=== PATIENT | female | born 1985 | race African-American/Black ===

== ENCOUNTER 2016-05-08 19:09 | Emergency (ER) | payer SELFPAY ==
[2016-05-08 19:38] LABS: Bilirubin Negative (Negative); Blood, Urine Small (Negative); Glucose, Urine (Dipstick) Negative (Negative); Ketone, Urine Negative (Negative); Nitrite Negative (Negative); Protein, Urine (Dipstick) Negative (Neg-Trace); Urobilinogen 0.2 mg/dL (0.2-1.0)
[2016-05-08 19:53] LABS: Squamous Epithelial 0-3 HPF (0-3); WBC/HPF 0-3 HPF (0-3)
== END 2016-05-08 20:07 | disposition home or self-care (01) ==
LOC: NAV ERS 19:09
DX: L02.211 Cutaneous abscess of abdominal wall (principal); R30.0 Dysuria; J45.909 Unspecified asthma, uncomplicated; F17.210 Nicotine dependence, cigarettes, uncomplicated
CPT/HCPCS: 81003; 81015; 99283

== ENCOUNTER 2016-05-30 04:38 | Emergency (ER) | payer SELFPAY ==
[2016-05-30] MEDS ORDERED: Ibuprofen 800 MG TAB ONE (05:05)
== END 2016-05-30 05:12 | disposition home or self-care (01) ==
LOC: NAV ERS 04:38
DX: R04.0 Epistaxis (principal); J02.9 Acute pharyngitis, unspecified; F17.210 Nicotine dependence, cigarettes, uncomplicated; Z86.711 Personal history of pulmonary embolism
CPT/HCPCS: 87081; 87430; 99283

== ENCOUNTER 2016-06-26 22:35 | Emergency (ER) | payer SELFPAY ==
[2016-06-26] MEDS ORDERED: Sulfameth/Trimethoprim DS 800-160mg TAB ONE (23:22)
[2016-06-26] MEDS ORDERED: Clindamycin 150 MG CAP ONE (23:22)
== END 2016-06-26 23:33 | disposition home or self-care (01) ==
LOC: NAV ERS 22:35
DX: L73.9 Follicular disorder, unspecified (principal); L02.224 Furuncle of groin; F41.9 Anxiety disorder, unspecified; F17.210 Nicotine dependence, cigarettes, uncomplicated; Z86.711 Personal history of pulmonary embolism
CPT/HCPCS: 87070; 87077; 87186; 87205; 99283

== ENCOUNTER 2017-04-03 09:34 | Emergency (ER) | payer BC, SELFPAY ==
[2017-04-03] MEDS ORDERED: Fluorescein Opthalmic Strip ONE (09:47)
[2017-04-03] MEDS ORDERED: Sodium Chloride 0.9% 1,000 ML ONE ×2 (09:50→10:19)
== END 2017-04-03 11:20 | disposition home or self-care (01) ==
LOC: NAV ERS 09:34
DX: H18.822 Corneal disorder due to contact lens, left eye (principal); F41.9 Anxiety disorder, unspecified; F17.210 Nicotine dependence, cigarettes, uncomplicated
CPT/HCPCS: 99283; J7050

== ENCOUNTER 2020-11-27 10:13 | Emergency (ER) | payer BC ==
[2020-11-27] MEDS ORDERED: diphenhydrAMINE 50 MG/ML VIAL ONE (10:23)
[2020-11-27] MEDS ORDERED: methylPREDNISolone Sod Succ/PF 125 MG/2 ML VIAL ONE (10:23)
[2020-11-27] MEDS ORDERED: Sodium Chloride 0.9% 1,000 ML ONE (10:26)
[2020-11-27 10:49] LABS: ALT (SGPT) 22 U/L (8-55); AST (SGOT) 25 U/L (5-34); Albumin 4.1 g/dL (3.5-5.0); Alkaline Phosphatase 74 U/L (40-110); Anion Gap 16 mmol/L (10-20); BUN (Urea Nitrogen) 11 mg/dL (7.0-18.7); Bilirubin, Total 0.4 mg/dL (0.2-1.2); Calc. Creatinine Clearance 0 mL/min (70-130); Calcium 9.4 mg/dL (7.8-10.44); Carbon Dioxide 20 mmol/L (22-29); Chloride 104 mmol/L (98-107); Globulin 3.9 g/dL (2.4-3.5); Glucose 129 mg/dL (70-105); Potassium 3.9 mmol/L (3.5-5.1); Sodium 136 mmol/L (136-145)
[2020-11-27 11:02] LABS: Eosinophils 1 % (0-10); Hemoglobin 13.3 g/dL (12.0-16.0); Lymphocytes 73 % (21-51); MDiff Complete? YES; Mean Corpuscular HGB CONC 30.1 g/dL (32.0-36.0); Mean Corpuscular Hemoglobin 23.9 pg (27.0-31.0); Mean Corpuscular Volume 79.6 fL (78.0-98.0); Mean Platelet Volume 9.3 fL (7.4-10.4); Monocytes 3 % (0-10); Neutrophil 23 % (42-75); Platelet Count 340 thou/uL (130-400); Platelet Morphology Comment Appears Adequate; RBC Distribution Width 14.7 % (11.5-14.5); Red Blood Cell (RBC) Count 5.56 mill/uL (4.20-5.40); White Blood Cell (WBC) Count 7.2 thou/uL (4.8-10.8)
[2020-11-27] MEDS ORDERED: Metoclopramide HCl 10 MG/2 ML VIAL ONE (11:22)
== END 2020-11-27 12:50 | disposition home or self-care (01) ==
LOC: NAV ERS 10:13
DX: L50.0 Allergic urticaria (principal); G43.909 Migraine, unspecified, not intractable, without status migrainosus; I10 Essential (primary) hypertension; F17.210 Nicotine dependence, cigarettes, uncomplicated; Z79.899 Other long term (current) drug therapy
CPT/HCPCS: 80053; 85025; 96365; 96375; J1200; J2765; J2930; J7050

== ENCOUNTER 2022-07-17 12:02 | Emergency (ER) | payer BC ==
[2022-07-17 12:34] LABS: MDiff Complete? YES; Manual Diff?? YES; Mean Corpuscular HGB CONC 29.9 g/dL (32.0-36.0); Mean Corpuscular Hemoglobin 23.2 pg (27.0-31.0); Mean Corpuscular Volume 77.8 fl (78.0-98.0); Mean Platelet Volume 8.7 fL (7.4-10.4); Platelet Count 195 10x3/uL (130-400); Red Blood Cell (RBC) Count 5.16 mill/uL (4.20-5.40); White Blood Cell (WBC) Count 9.9 10x3/uL (4.8-10.8)
[2022-07-17] MEDS ORDERED: Lidocaine Viscous Sol 2% 15 ml UD Cup ONE (12:38)
[2022-07-17] MEDS ORDERED: Sodium Chloride 0.9% 1,000 ML ONE (12:38)
[2022-07-17] MEDS ORDERED: Mag-Al Plus 1200 MG/1200 MG/120 MG/30 ML UDCUP ONE (12:38)
[2022-07-17] MEDS ORDERED: Ondansetron PF 4 MG/2 ML Vial ONE (12:38)
[2022-07-17] MEDS ORDERED: Pantoprazole 40 MG VIAL ONE (12:39)
[2022-07-17 12:40] LABS: ALT (SGPT) 22 U/L (8-55); AST (SGOT) 28 U/L (5-34); Albumin 4.2 g/dL (3.5-5.0); Alkaline Phosphatase 63 U/L (40-110); Anion Gap 16 mmol/L (10-20); BUN (Urea Nitrogen) 8 mg/dL (7.0-18.7); Bilirubin, Total 0.4 mg/dL (0.2-1.2); Calc. Creatinine Clearance 0 mL/min (70-130); Carbon Dioxide 20 mmol/L (22-29); Chloride 104 mmol/L (98-107); Estimated GFR 101; Globulin 4.2 g/dL (2.4-3.5); Glucose 103 mg/dL (70-105); Potassium 4.2 mmol/L (3.5-5.1); Protein, Total 8.4 g/dL (6.0-8.3); Sodium 136 mmol/L (136-145)
[2022-07-17 12:48] LABS: CKMB 1.3 ng/mL (0-6.6)
[2022-07-17 12:58] LABS: Band 1 % (5-11); Eosinophils 6 % (0-10); Lymphocytes 21 % (21-51); Monocytes 9 % (0-10); Neutrophil 61 % (42-75); Reactive Lymphocytes 2 % (0-10)
[2022-07-17 12:59] LABS: Large Platelets SLIGHT (None Seen); Microcytosis SLIGHT = 6-15 cells (100X) (0-5/hpf); Target Cells SLIGHT = 2-5 cells (100X) (0-1/hpf); Vacuoles SLIGHT
[2022-07-17 13:00] LABS: Platelet Morphology Comment Appears Adequate; Toxic Granulation SLIGHT
== END 2022-07-17 13:43 | disposition home or self-care (01) ==
LOC: NAV ERS 12:02
DX: K29.70 Gastritis, unspecified, without bleeding (principal); I10 Essential (primary) hypertension; F17.210 Nicotine dependence, cigarettes, uncomplicated
CPT/HCPCS: 71045; 80053; 82553; 83690; 84484; 85025; 93005; 96361; 96374; 96375; C9113; J2405; J7050

== ENCOUNTER 2022-10-08 10:29 | Emergency (ER) | payer BC ==
[2022-10-08] MEDS ORDERED: methylPREDNISolone Acetate 40 mg/ml Vial ONE (10:52)
== END 2022-10-08 11:10 | disposition home or self-care (01) ==
LOC: NAV ERS 10:29
DX: B37.2 Candidiasis of skin and nail (principal); I10 Essential (primary) hypertension; L29.9 Pruritus, unspecified; F17.210 Nicotine dependence, cigarettes, uncomplicated
CPT/HCPCS: 36416; 96372; 99282; J1030

== ENCOUNTER 2023-05-05 13:03 | Emergency (ER) | payer SELFPAY ==
[2023-05-05 14:27] LABS: Influenza A by NAA Not Detected (NotDetected); Influenza B by NAA Not Detected (NotDetected); SARS-CoV-2 NAA Rapid Test DETECTED (NotDetected)
[2023-05-05] MEDS ORDERED: Ibuprofen 200 MG TAB ONE (15:09)
== END 2023-05-05 15:25 | disposition home or self-care (01) ==
LOC: NAV ERS 13:03
DX: U07.1 COVID-19 (principal); I10 Essential (primary) hypertension; F17.210 Nicotine dependence, cigarettes, uncomplicated; Z79.899 Other long term (current) drug therapy
CPT/HCPCS: 99284

== ENCOUNTER 2023-11-27 18:14 | Emergency (ER) | payer BC ==
[2023-11-27] MEDS ORDERED: Aspirin Chewable 81 MG TAB ONE (18:35)
[2023-11-27] MEDS ORDERED: Cyclobenzaprine 10 MG TAB ONE (18:35)
[2023-11-27 18:45] LABS: #Basophils 0.1 thou/uL (0.0-0.2); #Eosinphils 0.4 thou/uL (0.0-0.7); #Lymphocytes 3.3 thou/uL (1.20-3.40); #Monocytes 0.4 thou/uL (0.11-0.59); #Neutrophils 4.8 thou/uL (1.40-6.50); %Eosinophils 4.7 % (0.0-10.0); %Lymphocytes 36.3 % (21.0-51.0); %Monocytes 4.4 % (0.0-10.0); %Neutrophils 53.6 % (42.0-75.0); Hematocrit 34.1 % (36.0-47.0); Mean Corpuscular HGB CONC 32.2 g/dL (32.0-36.0); Mean Corpuscular Hemoglobin 25.1 pg (27.0-31.0); Mean Corpuscular Volume 78.1 fl (78.0-98.0); Mean Platelet Volume 9.3 fL (7.4-10.4); Platelet Count 296 10x3/uL (130-400); RBC Distribution Width 14.6 % (11.5-14.5); Red Blood Cell (RBC) Count 4.37 mill/uL (4.20-5.40)
[2023-11-27 19:03] LABS: Troponin I Less than 0.010 ng/mL (< 0.028)
[2023-11-27 19:06] LABS: ALT (SGPT) 21 U/L (8-55); AST (SGOT) 23 U/L (5-34); Albumin 3.7 g/dL (3.5-5.0); Alkaline Phosphatase 94 U/L (40-110); Anion Gap 15 mmol/L (10-20); BUN (Urea Nitrogen) 10 mg/dL (7.0-18.7); Bilirubin, Total Less than 0.2 mg/dL (0.2-1.2); Calc. Creatinine Clearance 0 mL/min (70-130); Calcium 9.3 mg/dL (7.8-10.44); Carbon Dioxide 22 mmol/L (22-29); Chloride 103 mmol/L (98-107); Estimated GFR 92; Glucose 115 mg/dL (70-105); Potassium 4.4 mmol/L (3.5-5.1); Protein, Total 7.7 g/dL (6.0-8.3); Sodium 136 mmol/L (136-145)
[2023-11-27] MEDS ORDERED: Ketorolac Tromethamine 30 MG (1 mL) VIAL ONE (19:29)
== END 2023-11-27 19:43 | disposition home or self-care (01) ==
LOC: NAV ERS 18:14
DX: S29.011A Strain of muscle and tendon of front wall of thorax, initial encounter (principal); S46.911A Strain of unspecified muscle, fascia and tendon at shoulder and upper arm level, right arm, initial encounter; R20.2 Paresthesia of skin; I10 Essential (primary) hypertension; F17.210 Nicotine dependence, cigarettes, uncomplicated; X58.XXXA Exposure to other specified factors, initial encounter; Z79.899 Other long term (current) drug therapy
CPT/HCPCS: 71046; 80053; 84484; 85025; 93005; 96374; J1885